=== PATIENT | male | born 1985 | race Caucasian/White ===

== ENCOUNTER 2019-08-27 16:24 | Outpatient (CLI) | payer OTHER ==
--- NOTE | 2019-08-27 19:44 | RAD ---
CHEST TWO VIEWS: 08/27/19 COMPARISON: Comparison is made with the 07/06/17 study. The heart is normal in size and the lungs are clear. There is no infiltrate or other pulmonary pathol ogy of concern. There are no effusions. The mediastinum appears normal. IMPRESSION: No acute finding. POS: HOME
== END 2019-08-27 16:25 | disposition home or self-care (01) ==
LOC: BURRAD 16:24
PROVIDERS: ATTEND Family Medicine
DX: R04.2 Hemoptysis (principal)
CPT/HCPCS: 71046